=== PATIENT | female | born 1965 | race Caucasian/White ===

== ENCOUNTER 2023-06-10 10:18 | Outpatient (CLI) | payer BC | END 2023-06-10 10:19 | disposition home or self-care (01) | LOC: BICRAD 10:18 | PROVIDERS: ATTEND Family Medicine | DX: M19.012 Primary osteoarthritis, left shoulder (principal) ==

== ENCOUNTER 2023-06-27 08:34 | Outpatient (CLI) | payer BC | END 2023-06-27 08:35 | disposition home or self-care (01) | LOC: SCSMRI 08:34 | PROVIDERS: ATTEND Nurse Practitioner Family | DX: Z12.89 Encounter for screening for malignant neoplasm of other sites (principal); Z15.01 Genetic susceptibility to malignant neoplasm of breast; K76.89 Other specified diseases of liver; Z85.3 Personal history of malignant neoplasm of breast | CPT/HCPCS: 74183 ==

== ENCOUNTER 2023-08-23 07:48 | Outpatient (CLI) | payer BC | END 2023-08-23 07:49 | disposition home or self-care (01) | LOC: SCSMRI 07:48 | PROVIDERS: ATTEND Specialist | DX: M25.512 Pain in left shoulder (principal); M75.112 Incomplete rotator cuff tear or rupture of left shoulder, not specified as traumatic; S43.492A Other sprain of left shoulder joint, initial encounter ==

== ENCOUNTER 2024-06-23 09:41 | Outpatient (CLI) | payer BC | END 2024-06-23 09:42 | disposition home or self-care (01) | LOC: SCSMRI 09:41 | PROVIDERS: ATTEND Internal Medicine Hematology & Oncology | DX: Z12.89 Encounter for screening for malignant neoplasm of other sites (principal); Z15.01 Genetic susceptibility to malignant neoplasm of breast | CPT/HCPCS: 36415; 74183; 76376; 82565 ==

== ENCOUNTER 2025-06-14 10:09 | Outpatient (CLI) | payer BC ==
[2025-06-14 10:45] LABS: Estimated GFR - POC 84.0
== END 2025-06-14 10:10 | disposition home or self-care (01) ==
LOC: SCSMRI 10:09
PROVIDERS: ATTEND Internal Medicine Hematology & Oncology
DX: Z08 Encounter for follow-up examination after completed treatment for malignant neoplasm (principal); Z85.3 Personal history of malignant neoplasm of breast
CPT/HCPCS: 36415; 74183; 76376; 82565; S8037